=== PATIENT | female | born 1990 | race Hispanic/Latino ===

== ENCOUNTER 2023-04-22 05:32 | Inpatient (IN) | payer OTHER ==
[2023-04-22 06:29] VITALS: BMI 32.5
[2023-04-22 06:44] LABS: Fetal Membranes Rupture RUPTURE DETECTED (No Rupture)
[2023-04-22] MEDS ORDERED: fentaNYL 50 mcg/mL 1 mL Vial SLOW IVP PRN (06:51)
[2023-04-22] MEDS ORDERED: Ibuprofen 800 MG TAB PO PRN (06:51)
[2023-04-22] MEDS ORDERED: Acetaminophen 500 MG TAB PO PRN (06:51)
[2023-04-22] MEDS ORDERED: Carboprost 250 MCG/ML AMP IM PRN (06:51)
[2023-04-22] MEDS ORDERED: Ondansetron PF 4 MG/2 ML Vial IVP PRN ×3 (06:51→20:17)
[2023-04-22] MEDS ORDERED: hydrALAZINE 20 MG/ML VIAL SLOW IVP PRN ×2 (06:51→20:17)
[2023-04-22] MEDS ORDERED: Promethazine HCl 25 MG/ML VIAL IM PRN ×3 (06:51→20:17)
[2023-04-22] MEDS ORDERED: Methylergonovine 0.2 MG/ML VIAL IM PRN (06:51)
[2023-04-22] MEDS ORDERED: Misoprostol 200 MCG TAB PR PRN (06:51)
[2023-04-22] MEDS ORDERED: HYDROcodone/Acetaminophen 5/325 mg Tablet PO PRN ×2 (06:51→20:17)
[2023-04-22] MEDS ORDERED: Tranexamic Acid 1,000 MG/10 ML VIAL IVP PRN (06:51)
[2023-04-22] MEDS ORDERED: Lidocaine 1% (PF) 30 ML VIAL SC PRN (06:51)
[2023-04-22] MEDS ORDERED: Diphenoxylate HCl/Atropine Tablet PO PRN (06:51)
[2023-04-22] MEDS ORDERED: NS w/ Oxytocin 30 units 500 ML IV SCH ×3 (07:00)
[2023-04-22] MEDS: Lactated Ringer's 1,000 ML IV SCH ×2 (07:30→11:35)
[2023-04-22 08:02] LABS: Hemoglobin 12.1 g/dL (12.0-15.5); Mean Corpuscular HGB CONC 34.2 g/dL (32.0-36.0); Mean Corpuscular Hemoglobin 31.3 pg (27.0-33.0); Mean Corpuscular Volume 91.7 fl (81.6-98.3); Mean Platelet Volume 12.9 fl (7.4-10.4); Platelet Count 149 10x3/uL (150-450); RBC Distribution Width 13.6 % (11.5-14.5); Red Blood Cell (RBC) Count 3.86 10x6/uL (3.90-5.03); White Blood Cell (WBC) Count 8.6 10x3/uL (3.5-10.5)
[2023-04-22 08:27] LABS: HBSAg Index 0.13 S/CO (0-0.99); Hep B Surf Ag - L&D Non-Reactive S/CO (NonReactive)
[2023-04-22] MEDS ORDERED: fentaNYL/Ropivacaine Epidural 100 ML ONE (11:16)
[2023-04-22] MEDS ORDERED: Lactated Ringer's 500 ML IV PRN (11:53)
[2023-04-22] MEDS ORDERED: Acetaminophen 325 MG TAB PO PRN (11:53)
[2023-04-22] MEDS ORDERED: Naloxone HCl 0.4 mg/ml Vial IVP PRN ×2 (11:53)
[2023-04-22] MEDS ORDERED: ePHEDrine Sulfate 50 MG/10 ML VIAL SLOW IVP PRN (11:53)
[2023-04-22] MEDS ORDERED: diphenhydrAMINE 50 MG/ML VIAL IVP PRN (11:53)
[2023-04-22] MEDS ORDERED: Moisturizing Cream (Eucerin) 113 GM JAR TOP PRN (11:53)
[2023-04-22] MEDS ORDERED: Communication Order-Pharmacy FS SCH (12:00)
[2023-04-22] MEDS ORDERED: fentaNYL 2 mcg/Ropivacaine 0.2% Epidural 100 ML CADD EPIDURAL SCH (12:00)
[2023-04-22 14:44] LABS: Syphilis Antibody Nonreactive (Nonreactive); Syphilis Antibody Index 0.05 S/CO (<1.00 Non-Reactive)
[2023-04-22] MEDS ORDERED: Milk Of Magnesia 30 ML UDCUP PO PRN (20:17)
[2023-04-22] MEDS ORDERED: Bisacodyl 10 MG SUPP PR PRN (20:17)
[2023-04-22] MEDS ORDERED: diphenhydrAMINE 25 MG CAP PO PRN (20:17)
[2023-04-22] MEDS ORDERED: Boostrix 0.5 ML (Tdap) VIAL (>/=7 yrs of age) IM ONE (20:17)
[2023-04-22] MEDS ORDERED: Lanolin Ointment 7 GM TUBE TOP PRN (20:17)
[2023-04-22] MEDS: Docusate 100 MG CAP PO SCH (21:37)
[2023-04-22] MEDS: Ibuprofen 800 MG TAB PO SCH (21:37)
[2023-04-23] MEDS: Ibuprofen 800 MG TAB PO SCH ×3 (05:13→21:37)
[2023-04-23] MEDS ORDERED: cloNIDine 0.1 MG TAB PO PRN (07:40)
[2023-04-23] MEDS: Ferrous Sulfate 325 MG TAB PO SCH ×2 (08:35→16:46)
[2023-04-23] MEDS: NIFEdipine XL 30 MG TAB PO SCH (08:35)
[2023-04-23] MEDS: Prenatal Vitamin 1 TAB PO SCH (08:35)
[2023-04-23] MEDS: Docusate 100 MG CAP PO SCH ×2 (08:36→21:37)
[2023-04-24] MEDS: Ibuprofen 800 MG TAB PO SCH (05:01)
[2023-04-24] MEDS: Ferrous Sulfate 325 MG TAB PO SCH (08:19)
[2023-04-24] MEDS: Docusate 100 MG CAP PO SCH (08:24)
[2023-04-24] MEDS: Prenatal Vitamin 1 TAB PO SCH (08:24)
[2023-04-24] MEDS: NIFEdipine XL 30 MG TAB PO SCH (08:24)
[2023-04-24 11:07] VITALS: BP 132/88; TEMP 98
== END 2023-04-24 15:00 | disposition home or self-care (01) | DRG 807 ==
LOC: CSHLD/OP 05:32 → CSHLD 06:52 → CSHPP 20:30
PROVIDERS: ADMIT Family Medicine; ATTEND Family Medicine
PROC: 10E0XZZ Delivery of Products of Conception, External Approach (ICD-10-PCS; principal; 2023-04-22)
DX: O42.02 Full-term premature rupture of membranes, onset of labor within 24 hours of rupture (principal); Z37.0 Single live birth; Z3A.38 38 weeks gestation of pregnancy
CPT/HCPCS: 51702; 84112; 85027; 86780; 86850; 86900; 86901; 87340; 99285; J2590; J7120